=== PATIENT | female | born 2000 ===

== ENCOUNTER 2022-06-14 11:18 | Emergency (ER) | payer OTHER, SELFPAY ==
[2022-06-14 11:27] VITALS: BP 132/74; PULSE 84; RESP 18; TEMP 36.5; O2SAT 98; BMI 28.5
--- NOTE | 2022-06-14 11:40 | ED_ITS ---
HPI - Skin/Abscess/Foreign Bdy General Chief complaint: Skin/Abscess/Foreign Body Stated complaint: blister on right knee, painful Time Seen by Provider: 06/14/22 11:22 History of Present Illness HPI narrative: This 21-year-old female comes in with a area of redness and discomfort on her right knee. She went into the [facility] and was instructed to come here. At that visit there there was an attempt to express fluid and the patient states that there was a small amount of purulence fluid that was expressed and a culture was obtained. There was no provider there that could prescribe an antibiotic at the time. The patient states that her symptoms have worsened since then. She has a central lesion were small amount or drainage occurred that is overlying the right patella and surrounding erythema in a diameter of about 6-8 cm. She does not report any fevers. She is otherwise in good health. Related Data Home Medications Medication Instructions Recorded Confirmed BCP 06/14/22 Previous Rx's Medication Instructions Recorded cephalexin 500 mg capsule 500 mg PO TID 7 days #21 caps 06/14/22 Allergies Allergy/AdvReac Type Severity Reaction Status Date / Time No Known Drug Allergies Allergy Verified 06/14/22 11:26 Review of Systems Status of ROS: Reports: 10 or more systems reviewed and unremarkable except as noted in History and below Narrative: Constitutional: No fevers, no weight gain or loss. Eyes: No discharge. No vision changes. HENT: No congestion, no sore throat, no ear pain. Cardiovascular: No chest pain, no palpitations. Respiratory: No shortness of breath, no wheezes, no cough. Gastrointestinal: No abdominal pain, no vomiting, no diarrhea. Genitourinary: No dysuria, no hematuria. Musculoskeletal: Normal range of motion. Skin: No rashes, no pruritis. Small abscess overlying the right patella as described above. Neurological: No dizziness, weakness, sensory change, speech change. Endo/Heme/Allergies: No bruising or bleeding. No polydipsia. Pysch: no suicidality, no anxiety, no insomnia. All other systems reviewed and are negative. Exam Narrative: Exam Narrative: Constitutional: Well-developed, well-nourished, no acute distress. HEENT: Normocephalic, atraumatic. Neck: Normal range of motion. Nontender. Supple. Heart: Intact distal pulses. Lungs: No chest discomfort. No wheezes, rhonchi, or rales. Abdomen: Nontender. Back: Normal range of motion. Extremities: Normal range of motion. No injury. Skin: Area of erythema overlying the right patella with a central area where there are some drainage that occurred. This measures about 6-8 cm in diameter. The patient is ambulatory and the erythema is not circumferential at the right knee joint. There is no sign of septic joint. Neurologic: No altered sensation. No weakness. Alert and oriented. Psychiatric: No suicidality. No anxiety or depression. No insomnia. Nursing notes and vitals signs are reviewed. Const: Vital Signs, click to edit/add: Vital Signs - 24 hr 06/14/22 11:27 Temperature 97.7 F Pulse Rate [Right Pulse Oximeter] 84 Respiratory Rate 18 Blood Pressure [Ri ght Upper Arm] 132/74 Pulse Oximetry 98 Oxygen Delivery Me thod Room Air Course Vital Signs Vital signs: Initial Vital Signs Temperature 97.7 F 06/14/22 11:27 Temperature Source Temporal Artery Scan 06/14/22 11:27 Pulse Rate 84 06/14/22 11:27 Respiratory Rate 18 06/14/22 11:27 Blood Pressure 132/74 06/14/22 11:27 Blood Pressure Mean 93 06/14/22 11:27 Blood Pressure Position Sitting 06/14/22 11:27 Pulse Oximetry 98 06/14/22 11:27 Oxygen Delivery Method 06/14/22 11:27 Vital Signs Temperature 97.7 F 06/14/22 11:27 Pulse Rate 84 06/14/22 11:27 Respiratory Rate 18 06/14/22 11:27 Blood Pressure 132/74 06/14/22 11:27 Pulse Oximetry 98 06/14/22 11:27 Oxygen Delivery Method 06/14/22 11:27 Temperature 97.7 F 06/14/22 11:27 Pulse Rate 84 06/14/22 11:27 Respiratory Rate 18 06/14/22 11:27 Blood Pressure 132/74 06/14/22 11:27 Pulse Oximetry 98 06/14/22 11:27 Oxygen Delivery Method 06/14/22 11:27 MDM - Skin/Abscess/Foreign Bdy MDM Narrative Medical decision making narrative: This patient comes in with what appears to be a cellulitis and abscess overlying the right patella. She is not exhibiting signs or symptoms of septic joint or m ore serious condition. There was a culture obtained and a small amount of fluid was drained. These results are pending at the time of the visit here. She did receive a prescription for Keflex. I advised her regarding signs and symptoms that would indicate a need for return and re-evaluation. Discharge Plan Discharge Clinical Impression: Abscess of skin or subcutaneous tissue Patient Disposition: Home, Self-Care Condition: Stable Additional Instructions: Take medication as prescribed. Follow up with MD or return if worsening. Prescriptions: New cephalexin 500 mg capsule 500 mg PO TID 7 Days Qty: 21 0RF No Action BCP Stand Alone Forms: [employer] Info Instructions
== END 2022-06-14 12:15 | disposition home or self-care (01) ==
PROVIDERS: Emergency Provider Emergency Medicine Emergency Medical Services
DX: L02.415 Cutaneous abscess of right lower limb (principal)
CPT/HCPCS: 99282; 99284

== ENCOUNTER 2022-07-18 08:32 | Day surgery (SDC) | payer OTHER, SELFPAY ==
[2022-07-18] VITALS (13 sets, daily range): BP systolic 98–129; BP diastolic 55–78; PULSE 48–83; RESP 12–16; TEMP 36.1–36.7; O2SAT 95–100; BMI 27.8
[2022-07-18 09:21] LABS: Ur HCG Qualitative* Negative (Negative)
[2022-07-18] MEDS: SODIUM CHLORIDE 0.9 % (FLUSH) 10 ML SYRINGE IVF (09:30)
[2022-07-18] MEDS: LACTATED RINGERS 1000 ML 1,000 ML 100 ML IV ×2 (09:30→13:10)
[2022-07-18 09:38] LABS: Hemoglobin* 14.7 gm/dL (12.0-16.0)
[2022-07-18 09:45] LABS: SARS Antigen* n (Negative)
--- NOTE | 2022-07-18 11:54 | P.PCNOB_ITS ---
Procedure Pre-op/Post-op diagnoses: Pre-Op/Post-Op Diagnoses Operation Date: 07/18/22 10:45 <No data on this case meets the specified criteria> Procedure: Procedures Operation Date: 07/18/22 10:45 Diagnostic Laparoscopy, Left Paratubal cystectomy, and left salpingectomy Measurement Superintendent: Cata Black Estimated blood loss (mL): 10 Anesthesia type: General Complications: none Specimen: other (Left fallopian tube Left Paratubal cyst) Narrative: Preoperative diagnosis: 21-year-old with approximately 8 cm left adnexal cyst. Postoperative diagnosis: 8-9 cm left paratubal cyst. Procedure: Diagnostic laparoscopy, left paratubal cystectomy, and left salpinge ctomy Anesthesia: General endotracheal Surgeon: Elayne Williamson MD Measurement Superintendent: Cata Black MD EBL: 10 mL Urine output: 200 mL clear urine IVF: 1500 ml Specimen: Left fallopian tube and left Paratubal cyst Findings: On exam under anesthesia: Small amount of blood menstrual blood coming from cervical os. The uterus was anterior, 6 week size, mobile, without masses or nodularity palpable. Adnexa were without mass or fullness bilaterally. On laparoscopy: Filmy adhesions noted on right upper quadrant. Liver normal appearing. The uterus, right fallopian tube, and right ovary were normal. Left ovary was normal. 8-9 cm paratubal cyst that included the majority of left fallopian tube - only approximately 2 cm of normal fallopian tube presented at the proximal end. Cyst was simple and well circumscribed. Procedure: Patient was taken to the operating room where general anesthetic was found to be adequate. She was placed in the dorsal lithotomy position and an exam under anesthesia was performed with findings stated above. She was then prepped and draped in a normal sterile manner. Patient was straight cathed to empty her bladder. Sponge stick was placed vaginally to act as uterine manipulator. Attention was then turned to performing the laparoscopic portion of the procedure. All incisions were injected with 0.5% Marcaine prior to incision. A vertical 12 mm infraumbilical, incision was made and a 11 mm trocar placed via Saeid method under direct visualization with the laparoscope. The abdomen was then insufflated with carbon dioxide gas to a pressure of 15 mm of mercury. Two left 5 mm trocars were placed under direct visualization. One was placed 3-4 finger breaths medial to the ischial crests and a 2nd was placed hands breath medial and 3 cm superior to lower quadrant port. A diagnostic laparoscopy was then performed with findings stated above. Ligasure was used to used to dissect left fallopian tube tissue off the paratubal cyst. Paratubal cyst was removed intact. Decision was made to perform left salpingectomy due to extensive damage from paratubal cyst and decreased risk of ectopic in that abnormal tube in the future. Left tube removed through left lower quadrant port. Paratubal cyst was placed in endocatch bag and removed intact through umbilical port. Excellent hemostasis was noted of all pedicles. The trocars were then removed under direct visualization. The CO2 gas was allowed to escape the infraumbilical port prior to its removal. Fascial at the umbilical port was closed with 0- vicryl in running continuous fashion. Four interrupted subcutaneous stitches were placed at that port site and skin was reapproximated with 4-0 monocryl. Two other incisions were reapproximated using 4-0 Monocryl in a running subcuticular manner. LiquiBand skin adhesive was then applied and adhesive dressings applied over each incision. The uterine manipulator was removed from vaginal. The patient tolerated this procedure well. Sponge, lap and instrument counts were correct x2 at the end of the procedure and the patient was taken to the recovery area in stable condition.
[2022-07-18] MEDS: BUPIVACAINE 0.5% 30 ML INJECTION (14:48)
--- NOTE | 2022-07-18 15:06 | W.ANESCHARGE ---
Anesthesia Charges Start Date/Time Anesthesia Start Date: 07/18/22 Anesthesia Start Time: 12:24 Stop Date/Time Anesthesia Stop Date: 07/18/22 Anesthesia Stop Time: 15:06 Summary Emergency: No
--- NOTE | 2022-07-18 15:08 | W.ANESCHARGE ---
Anesthesia Charges Start Date/Time Anesthesia Start Date: 07/18/22 Anesthesia Start Time: 12:24 Stop Date/Time Anesthesia Stop Date: 07/18/22 Anesthesia Stop Time: 15:06 Summary Emergency: No
[2022-07-18] MEDS: fentaNYL 100 MCG/2 ML inj 50 MCG IVP ×2 (15:10→15:16)
--- NOTE | 2022-07-18 15:26 | SUR.PHASEI ---
D) PT. C/O PAIN - 10 I) ADMINISTER FENTANYL - SEE EMAR A) PAIN 10/11 P) CONTINUE TO MONITOR PT. COMFORT LEVEL AND TREAT PER ORDERS.
[2022-07-18] MEDS: OXYCODONE 5 MG TABLET PO (16:00)
== END 2022-07-18 17:00 | disposition home or self-care (01) ==
PROVIDERS: Anesthesiology; PCP Student in an Organized Health Care Education/Training Program; Visit Provider Obstetrics & Gynecology
PROC: (CPT 58661; principal; 2022-07-18 10:30)
DX: D28.2 Benign neoplasm of uterine tubes and ligaments (principal); R10.2 Pelvic and perineal pain
CPT/HCPCS: 58661; 00840; 36415; 81025; 85018; 86850; 86900; 86901; 87426; 88305; 88307; A9270; J0330; J1100; J1885; J2250; J2405; J2704; J3010; J3490; J7120